=== PATIENT | male | born 1950 | race Caucasian/White ===

== ENCOUNTER 2017-11-02 12:23 | Emergency (ER) | payer MEDICARE, MEDICAID ==
[2017-11-02 13:10] LABS: #Lymphocytes 0.9 thou/uL (1.20-3.40); #Monocytes 0.5 thou/uL (0.11-0.59); #Neutrophils 3.5 thou/uL (1.40-6.50); %Basophils 0.6 % (0.0-1.0); %Eosinophils 0.4 % (0.0-10.0); %Lymphocytes 18.3 % (21.0-51.0); %Monocytes 9.9 % (0.0-10.0); %Neutrophils 70.9 % (42.0-75.0); Hemoglobin 13.5 g/dL (14.0-18.0); Mean Corpuscular HGB CONC 31.6 g/dL (32.0-36.0); Mean Corpuscular Hemoglobin 25.9 pg (27.0-31.0); Mean Corpuscular Volume 82.1 fl (80.0-94.0); Mean Platelet Volume 7.2 fL (7.4-10.4); Platelet Count 211 thou/uL (130-400); RBC Distribution Width 14.8 % (11.5-14.5); White Blood Cell (WBC) Count 4.9 thou/uL (4.8-10.8)
[2017-11-02 13:26] LABS: ALT (SGPT) 15 U/L (8-55); AST (SGOT) 18 U/L (5-34); Albumin 3.7 g/dL (3.4-4.8); Alkaline Phosphatase 130 U/L (40-150); Anion Gap 16 mmol/L (10-20); BUN (Urea Nitrogen) 18 mg/dL (8.4-25.7); Bilirubin, Total 0.5 mg/dL (0.2-1.2); Calc. Creatinine Clearance 0 mL/min (70-130); Calcium 9.4 mg/dL (7.8-10.44); Carbon Dioxide 23 mmol/L (23-31); Chloride 108 mmol/L (98-107); Estimated GFR-MDRD Greater than 90; Glucose 94 mg/dL (80-115); Potassium 3.9 mmol/L (3.5-5.1); Protein, Total 6.7 g/dL (5.8-8.1); Sodium 143 mmol/L (136-145)
[2017-11-02 13:31] LABS: CKMB 2.6 ng/mL (0-6.6); Troponin I Less than 0.010 ng/mL (< 0.028)
--- NOTE | 2017-11-02 14:06 | RAD ---
PORTABLE CHEST 1 VIEW: DATE: 11/02/17. TIME: 12:26 p.m. HISTORY: Altered mental status. FINDINGS: Comparison is made with the exam of 05/22/16. Tracheostomy tube remains in place. The heart size is normal. The aorta is tortuous. No focal area s of consolidation, pneumothoraces, or pleural effusions, or infarct. IMPRESSION: No radiographic evidence of acute cardiopulmonary process. POS: AGUST[facility]N
--- NOTE | 2017-11-02 14:21 | CT ---
CT BRAIN NONCONTRAST: DATE: 11/02/17. TIME: 1:24 p.m. HISTORY: A 67-year-old male with syncope. COMPARISON: 11/27/14. FINDINGS: Again noted are the old right temporal craniotomy changes. Previously, there was a moderate-sized re gion of right lateral frontal lobe encephalomalacia and gliosis. This is again noted, but the extent may have increased in size since the prior CT. Small adjacent cortical focus of encephalomalacia and gliosis posterior to that in the upper right cerebrum. Previously, there was a moderate-sized region of contralateral left lateral frontal encephalomalacia and gliosis, plus irregularly shaped encephalomalacia and gliosis involving left basal ganglia, left caudate nucleus, and left internal and external capsules, along with left thalamus. There is a new finding of a moderate-sized region of encephalomalacia and gliosis in the left parieta l lobe, contiguous with the left frontal lobe encephalomalacia and gliosis. There is ex vacuo dilati on of the left lateral ventricle. No obstructive hydrocephalus, mass effect, midline shift, acute intraaxial or extraaxial hemorrhage, or any other extraaxial fluid collection. No acute calvarial fracture. IMPRESSION: 1. 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 Some of them occurred after the previous CT of 11/27/14. 2. Old infarctions in the contralateral right middle cerebral artery territory. 3. 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 4. No acute intracranial findings. JOSIAS Lou POS: GILDARDO
== END 2017-11-02 15:54 | disposition short-term general hospital (02) ==
LOC: MADERS 12:23
DX: R55 Syncope and collapse (principal); K21.9 Gastro-esophageal reflux disease without esophagitis; Z86.73 Personal history of transient ischemic attack (TIA), and cerebral infarction without residual deficits; Z86.711 Personal history of pulmonary embolism; F32.9 Major depressive disorder, single episode, unspecified
CPT/HCPCS: 36415; 70450; 71045; 80053; 82553; 84443; 84484; 85025; 93005

== ENCOUNTER 2018-06-10 02:35 | Emergency (ER) | payer MEDICARE, MEDICAID ==
[2018-06-10 05:13] LABS: ALT (SGPT) 24 U/L (8-55); AST (SGOT) 47 U/L (5-34); Albumin 3.7 g/dL (3.4-4.8); Alkaline Phosphatase 111 U/L (40-150); Anion Gap 19 mmol/L (10-20); BUN (Urea Nitrogen) 35 mg/dL (8.4-25.7); Bilirubin, Total 0.6 mg/dL (0.2-1.2); Calc. Creatinine Clearance 0 mL/min (70-130); Calcium 9.2 mg/dL (7.8-10.44); Carbon Dioxide 23 mmol/L (23-31); Chloride 102 mmol/L (98-107); Estimated GFR-MDRD 70; Globulin 3.3 g/dL (2.4-3.5); Glucose 119 mg/dL (80-115); Potassium 4.5 mmol/L (3.5-5.1); Sodium 139 mmol/L (136-145)
[2018-06-10 05:15] LABS: Band 13 % (5-11); Hemoglobin 14.3 g/dL (14.0-18.0); Lymphocytes 3 % (21-51); MDiff Complete? YES; Mean Corpuscular HGB CONC 32.5 g/dL (32.0-36.0); Mean Corpuscular Volume 92.2 fL (78.0-98.0); Mean Platelet Volume 7.1 fL (7.4-10.4); Monocytes 3 % (0-10); Neutrophil 80 % (42-75); PLT Morphology Comment Appears Adequate; Platelet Count 226 thou/uL (130-400); RBC Distribution Width 13.3 % (11.5-14.5); RBC Morphology Normal; Reactive Lymphocytes 1 % (0-10); Red Blood Cell (RBC) Count 4.75 mill/uL (4.70-6.10); White Blood Cell (WBC) Count 41.4 thou/uL (4.8-10.8)
--- NOTE | 2018-06-10 09:34 | RAD ---
FRONTAL RADIOGRAPH CHEST: 06/10/2018 HISTORY: Shortness of breath/cough. COMPARISON: 03/05/2018 FINDINGS: Tracheostomy tube present. No pneumothorax, lobar consolidation, or alveolar edema. Mild diffuse in creased linear interstitial density. Mild hazy density in both lung bases suggest scar and/or volume loss. IMPRESSION: NO focal consolidation or alveolar edema. POS: [facility]
== END 2018-06-10 05:13 | disposition short-term general hospital (02) ==
LOC: MADERS 02:35
DX: J69.0 Pneumonitis due to inhalation of food and vomit (principal); Z86.73 Personal history of transient ischemic attack (TIA), and cerebral infarction without residual deficits; Z86.711 Personal history of pulmonary embolism; K21.9 Gastro-esophageal reflux disease without esophagitis; E78.5 Hyperlipidemia, unspecified; F32.9 Major depressive disorder, single episode, unspecified; Z79.899 Other long term (current) drug therapy
CPT/HCPCS: 36415; 71045; 80053; 83605; 85025; 87040; 87804; 94760; J7620

== ENCOUNTER 2018-12-22 00:25 | Emergency (ER) | payer MEDICARE, MEDICAID ==
[2018-12-22] MEDS ORDERED: Sterile Water 10 ML ONE (00:57)
== END 2018-12-22 01:33 | disposition home or self-care (01) ==
LOC: MADERS 00:25
DX: K94.23 Gastrostomy malfunction (principal); J43.9 Emphysema, unspecified; F32.9 Major depressive disorder, single episode, unspecified; E78.5 Hyperlipidemia, unspecified; Z86.711 Personal history of pulmonary embolism; Z86.73 Personal history of transient ischemic attack (TIA), and cerebral infarction without residual deficits; Z79.899 Other long term (current) drug therapy
CPT/HCPCS: 43762; A4216

== ENCOUNTER 2018-12-25 00:21 | Emergency (ER) | payer MEDICARE, OTHER ==
[2018-12-25 01:30] LABS: #Basophils 0.1 thou/uL (0.0-0.2); #Lymphocytes 0.5 thou/uL (1.20-3.40); #Monocytes 0.7 thou/uL (0.11-0.59); #Neutrophils 10.6 thou/uL (1.40-6.50); %Basophils 0.5 % (0.0-1.0); %Lymphocytes 4.3 % (21.0-51.0); %Monocytes 6.2 % (0.0-10.0); %Neutrophils 88.9 % (42.0-75.0); Hemoglobin 13.5 g/dL (14.0-18.0); Mean Corpuscular HGB CONC 32.1 g/dL (32.0-36.0); Mean Corpuscular Hemoglobin 27.7 pg (27.0-31.0); Mean Corpuscular Volume 86.2 fL (78.0-98.0); Mean Platelet Volume 6.5 fL (7.4-10.4); Platelet Count 326 thou/uL (130-400); RBC Distribution Width 14.2 % (11.5-14.5); Red Blood Cell (RBC) Count 4.86 mill/uL (4.70-6.10)
[2018-12-25] MEDS ORDERED: Sodium Chloride 0.9% 1,000 ML ONE (01:39)
[2018-12-25] MEDS ORDERED: Piperacillin/Tazobactam 4.5 GM VIAL ONE (01:39)
[2018-12-25] MEDS ORDERED: Sodium Chloride 0.9% 100 ML ONE (01:40)
[2018-12-25 01:44] LABS: ALT (SGPT) 17 U/L (8-55); AST (SGOT) 17 U/L (5-34); Albumin 3.9 g/dL (3.4-4.8); Alkaline Phosphatase 135 U/L (40-150); BUN (Urea Nitrogen) 43 mg/dL (8.4-25.7); Bilirubin, Total 0.5 mg/dL (0.2-1.2); Calc. Creatinine Clearance 0 mL/min (70-130); Calcium 9.6 mg/dL (7.8-10.44); Carbon Dioxide 21 mmol/L (23-31); Estimated GFR-MDRD 84; Globulin 4.4 g/dL (2.4-3.5); Glucose 123 mg/dL (80-115); Protein, Total 8.3 g/dL (5.8-8.1)
[2018-12-25 01:52] LABS: Chloride 102 mmol/L (98-107); Potassium 4.2 mmol/L (3.5-5.1); Sodium 140 mmol/L (136-145)
[2018-12-25 01:58] LABS: Anion Gap 21 mmol/L (10-20)
--- NOTE | 2018-12-25 08:06 | RAD ---
EXAM: Chest one view: HISTORY: Dyspnea COMPARISON: 07/26/2018 FINDINGS: Stable tracheostomy tube. Heart size: Within normal limits. Lungs: Patchy linear and interstitial parenchymal changes particularly in the perihilar regions, stab le. Interposed colon gas between the right hemidiaphragm and liver. No evidence for pneumonia, pleural effusion, acute edema, or pneumothorax, or other significant acute process. IMPRESSION: No significant acute intrathoracic disease. Overall stable exam.
== END 2018-12-25 02:22 | disposition short-term general hospital (02) ==
LOC: MADERS 00:21
DX: J69.0 Pneumonitis due to inhalation of food and vomit (principal); F32.9 Major depressive disorder, single episode, unspecified; I26.99 Other pulmonary embolism without acute cor pulmonale; Z79.899 Other long term (current) drug therapy
CPT/HCPCS: 71045; 80053; 83605; 83880; 84484; 85025; 87040; 93005; 94760; 96365; J2543; J3490; J7050

== ENCOUNTER 2020-04-20 03:42 | Emergency (ER) | payer MEDICARE, MEDICAID ==
[2020-04-20] MEDS ORDERED: Cefepime 2 GM VIAL ONE (05:07)
[2020-04-20] MEDS ORDERED: Sodium Chloride 0.9% 2,000 ML ONE (05:07)
[2020-04-20] MEDS ORDERED: Sodium Chloride 0.9% 100 ML ONE (05:08)
[2020-04-20 05:20] LABS: #Basophils 0.1 thou/uL (0.0-0.2); #Monocytes 1.5 thou/uL (0.11-0.59); %Eosinophils 0.1 % (0.0-10.0); %Lymphocytes 6.6 % (21.0-51.0); %Monocytes 9.9 % (0.0-10.0); %Neutrophils 82.4 % (42.0-75.0); Hemoglobin 15.2 g/dL (14.0-18.0); Mean Corpuscular HGB CONC 31.8 g/dL (32.0-36.0); Mean Corpuscular Volume 97.4 fL (78.0-98.0); Platelet Count 369 thou/uL (130-400); RBC Distribution Width 13.3 % (11.5-14.5); Red Blood Cell (RBC) Count 4.91 mill/uL (4.70-6.10); White Blood Cell (WBC) Count 14.6 thou/uL (4.8-10.8)
[2020-04-20 05:26] LABS: Bilirubin Negative (Negative); Blood, Urine Trace (Negative); Clarity Slightly Cloudy (Clear); Glucose, Urine (Dipstick) Negative (Negative); Ketone, Urine Negative (Negative); Leukocyte Large (Negative); Nitrite Positive (Negative); Protein, Urine (Dipstick) 30 mg/dL (Neg-Trace); Urobilinogen 0.2 mg/dL (Less than 2); pH, Urine 7.5 (5.0-9.0)
[2020-04-20 05:34] LABS: ALT (SGPT) 11 U/L (8-55); AST (SGOT) 17 U/L (5-34); Albumin 3.5 g/dL (3.4-4.8); Alkaline Phosphatase 113 U/L (40-110); Anion Gap 15 mmol/L (10-20); BUN (Urea Nitrogen) 27 mg/dL (8.4-25.7); Bilirubin, Total 0.5 mg/dL (0.2-1.2); Calc. Creatinine Clearance 0 mL/min (70-130); Calcium 8.8 mg/dL (7.8-10.44); Carbon Dioxide 28 mmol/L (23-31); Chloride 103 mmol/L (98-107); Estimated GFR-MDRD Greater than 90; Globulin 3.2 g/dL (2.4-3.5); Glucose 104 mg/dL (80-115); Potassium 4.2 mmol/L (3.5-5.1); Protein, Total 6.7 g/dL (5.8-8.1); RBC/HPF 0-3 HPF (0-3); Sodium 142 mmol/L (136-145); WBC/HPF Greater Than 50 HPF (0-3)
[2020-04-20 05:35] LABS: Bacteria/HPF 4+ HPF (None Seen); Mucous/LPF Rare LPF (<2+); Squamous Epithelial 0-3 HPF (0-3); Yeast-Budding Rare HPF (None Seen); Yeast-Hyphae 1+ HPF (None Seen)
[2020-04-20] MEDS ORDERED: Vancomycin 1.5 GRAM/300 ML BAG ONE (06:28)
--- NOTE | 2020-04-20 10:18 | RAD ---
PORTABLE CHEST: 04/20/20 PROVIDED CLINICAL HISTORY: Altered mental status. COMPARISON: 12/25/2018 FINDINGS: The cardiac and mediastinal silhouette is unchanged in appearance. Tracheostomy appliance is again se en in a similar position. Stable linear parenchymal opacities, compatible with scarring. No focal con solidation, pleural fluid or pneumothorax apparent. IMPRESSION: No evidence for an acute cardiopulmonary process. POS: [facility]
== END 2020-04-20 06:51 | disposition short-term general hospital (02) ==
LOC: MADERS 03:42
DX: A41.9 Sepsis, unspecified organism (principal); N39.0 Urinary tract infection, site not specified; R00.0 Tachycardia, unspecified; R26.9 Unspecified abnormalities of gait and mobility; G81.91 Hemiplegia, unspecified affecting right dominant side; R47.01 Aphasia; S51.811A Laceration without foreign body of right forearm, initial encounter; J43.9 Emphysema, unspecified; F32.9 Major depressive disorder, single episode, unspecified; I67.5 Moyamoya disease; K21.9 Gastro-esophageal reflux disease without esophagitis; E78.5 Hyperlipidemia, unspecified; E78.00 Pure hypercholesterolemia, unspecified; Z86.711 Personal history of pulmonary embolism; Z86.73 Personal history of transient ischemic attack (TIA), and cerebral infarction without residual deficits; X58.XXXA Exposure to other specified factors, initial encounter
CPT/HCPCS: 71045; 80053; 81003; 81015; 83605; 85025; 87040; 87077; 87086; 87186; 96361; 96365; 96366; 96367; J0692; J3370; J3490; J7050

== ENCOUNTER 2020-08-09 22:58 | Emergency (ER) | payer MEDICARE, MEDICAID ==
[~2020-08-09 22:58] MED LIST: Iopamidol 370 76% 100 ML VIAL ONE
[2020-08-10 00:02] LABS: #Basophils 0.2 thou/uL (0.0-0.2); #Lymphocytes 1.4 thou/uL (1.20-3.40); #Monocytes 0.9 thou/uL (0.11-0.59); #Neutrophils 16.1 thou/uL (1.40-6.50); %Basophils 0.8 % (0.0-1.0); %Eosinophils 0.1 % (0.0-10.0); %Lymphocytes 7.6 % (21.0-51.0); %Monocytes 4.7 % (0.0-10.0); %Neutrophils 86.8 % (42.0-75.0); Hemoglobin 12.7 g/dL (14.0-18.0); Mean Corpuscular HGB CONC 30.7 g/dL (32.0-36.0); Mean Corpuscular Hemoglobin 27.1 pg (27.0-31.0); Mean Corpuscular Volume 88.3 fL (78.0-98.0); Mean Platelet Volume 6.5 fL (7.4-10.4); Platelet Count 521 thou/uL (130-400); RBC Distribution Width 14.4 % (11.5-14.5); Red Blood Cell (RBC) Count 4.69 mill/uL (4.70-6.10); White Blood Cell (WBC) Count 18.6 thou/uL (4.8-10.8)
[2020-08-10 00:18] LABS: ALT (SGPT) 17 U/L (8-55); AST (SGOT) 18 U/L (5-34); Albumin 3.1 g/dL (3.4-4.8); Alkaline Phosphatase 121 U/L (40-110); Anion Gap 18 mmol/L (10-20); BUN (Urea Nitrogen) 47 mg/dL (8.4-25.7); Bilirubin, Total 0.2 mg/dL (0.2-1.2); Calc. Creatinine Clearance 0 mL/min (70-130); Carbon Dioxide 23 mmol/L (23-31); Chloride 118 mmol/L (98-107); Globulin 3.4 g/dL (2.4-3.5); Glucose 109 mg/dL (83-110); Potassium 4.9 mmol/L (3.5-5.1); Protein, Total 6.5 g/dL (5.8-8.1); Sodium 154 mmol/L (136-145)
[2020-08-10] MEDS ORDERED: Sodium Chloride 0.9% 250 ML 250 ML ONE (01:27)
[2020-08-10] MEDS ORDERED: metroNIDAZOLE 500 MG/100 ML BAG ONE ×2 (01:27→01:29)
[2020-08-10] MEDS ORDERED: Sodium Chloride 0.9% 1,000 ML ONE (01:27)
[2020-08-10] MEDS ORDERED: Cefepime 2 GM VIAL ONE (01:27)
[2020-08-10 01:54] LABS: Bilirubin Negative (Negative); Blood, Urine Trace (Negative); Clarity Cloudy (Clear); Glucose, Urine (Dipstick) Negative (Negative); Ketone, Urine Negative (Negative); Leukocyte Small (Negative); Nitrite Negative (Negative); Protein, Urine (Dipstick) 100 mg/dL (Neg-Trace); Urobilinogen 0.2 mg/dL (Less than 2)
[2020-08-10 01:59] LABS: pH, Urine Greater/Equal 9.0 (5.0-9.0)
[2020-08-10 02:05] LABS: RBC/HPF 0-3 HPF (0-3); Squamous Epithelial 0-3 HPF (0-3); WBC/HPF 0-3 HPF (0-3)
[2020-08-10 02:06] LABS: Bacteria/HPF Rare-Few HPF (None Seen); Mucous/LPF 1+ LPF (<2+); Triple Phosphate Crystal 2+ HPF (None Seen); Yeast-Budding 1+ HPF (None Seen); Yeast-Hyphae 1+ HPF (None Seen)
[2020-08-10] MEDS ORDERED: Sodium Chloride 0.9% 500 ML ONE (02:31)
[2020-08-10] MEDS ORDERED: Acetaminophen 500 MG TAB ONE (02:34)
[2020-08-10] MEDS ORDERED: Sodium Chloride Irrig Solution 250 ML ONE (05:07)
[2020-08-10 08:43] LABS: SARS-CoV-2 NAA Rapid Test Not Detected (NotDetected)
== END 2020-08-10 07:30 | disposition short-term general hospital (02) ==
LOC: MADERS 22:58
DX: A41.9 Sepsis, unspecified organism (principal); J69.0 Pneumonitis due to inhalation of food and vomit; S42.301A Unspecified fracture of shaft of humerus, right arm, initial encounter for closed fracture; Z20.822 Contact with and (suspected) exposure to COVID-19; E46 Unspecified protein-calorie malnutrition; L89.154 Pressure ulcer of sacral region, stage 4; K21.9 Gastro-esophageal reflux disease without esophagitis; E78.00 Pure hypercholesterolemia, unspecified; E78.5 Hyperlipidemia, unspecified; J44.9 Chronic obstructive pulmonary disease, unspecified; Z79.899 Other long term (current) drug therapy; Z93.1 Gastrostomy status; X58.XXXA Exposure to other specified factors, initial encounter
CPT/HCPCS: 0240U; 71045; 73060; 74177; 83605; 83880; 84484; 87040; 87077; 87086; 87186; 93005; 94760; 80053; 81003; 81015; 84443; 85025; 87070; 87205; 96365; 96367; 96368; 96375; J0692; J1956; J3370; J7030; J7050; Q9967

== ENCOUNTER 2020-10-24 07:28 | Emergency (ER) | payer MEDICARE, MEDICAID ==
[2020-10-24] MEDS ORDERED: Acetaminophen 650 MG Suppository ONE (07:55)
[2020-10-24] MEDS ORDERED: Sodium Chloride 0.9% 1,000 ML ONE (08:19)
[2020-10-24] MEDS ORDERED: Cefepime 2 GM VIAL ONE (08:19)
[2020-10-24 08:58] LABS: Hemoglobin 11.6 g/dL (14.0-18.0); Mean Corpuscular HGB CONC 29.9 g/dL (32.0-36.0); Mean Corpuscular Hemoglobin 25.5 pg (27.0-31.0); Mean Corpuscular Volume 85.4 fL (78.0-98.0); Mean Platelet Volume 6.8 fL (7.4-10.4); Platelet Count 602 thou/uL (130-400); RBC Distribution Width 17.2 % (11.5-14.5); Red Blood Cell (RBC) Count 4.56 mill/uL (4.70-6.10); White Blood Cell (WBC) Count 23.6 thou/uL (4.8-10.8)
[2020-10-24 09:05] LABS: ALT (SGPT) 23 U/L (8-55); AST (SGOT) 26 U/L (5-34); Albumin 3.2 g/dL (3.4-4.8); Alkaline Phosphatase 120 U/L (40-110); Anion Gap 17 mmol/L (10-20); BUN (Urea Nitrogen) 28 mg/dL (8.4-25.7); Bilirubin, Total 1.2 mg/dL (0.2-1.2); Calc. Creatinine Clearance 0 mL/min (70-130); Calcium 8.1 mg/dL (7.8-10.44); Carbon Dioxide 20 mmol/L (23-31); Chloride 102 mmol/L (98-107); Globulin 3.2 g/dL (2.4-3.5); Glucose 148 mg/dL (83-110); Protein, Total 6.4 g/dL (5.8-8.1); Sodium 134 mmol/L (136-145)
[2020-10-24 09:08] LABS: CK (CPK) 179 U/L (30-200); Lipase 27 U/L (8-78)
[2020-10-24 09:29] LABS: Anisocytosis SLIGHT = 6-15 cells (100X) (0-5/hpf); Band 5 % (5-11); Lymphocytes 7 % (21-51); MDiff Complete? YES; Manual Diff?? YES; Neutrophil 79 % (42-75); Platelet Morphology Comment Appears Increased; Reactive Lymphocytes 9 % (0-10)
== END 2020-10-24 10:23 | disposition short-term general hospital (02) ==
LOC: MADERS 07:28
DX: A41.9 Sepsis, unspecified organism (principal); R65.20 Severe sepsis without septic shock; I67.5 Moyamoya disease; E78.5 Hyperlipidemia, unspecified; E78.00 Pure hypercholesterolemia, unspecified; Z86.73 Personal history of transient ischemic attack (TIA), and cerebral infarction without residual deficits; J43.9 Emphysema, unspecified; K21.9 Gastro-esophageal reflux disease without esophagitis; Z86.711 Personal history of pulmonary embolism
CPT/HCPCS: 51702; 71045; 80053; 82550; 83605; 83690; 84484; 85025; 87040; 93005; 96365; J0692; J3370; J7050

== ENCOUNTER 2020-11-24 09:28 | Emergency (ER) | payer MEDICARE, MEDICAID ==
[2020-11-24 10:45] LABS: #Basophils 0.1 thou/uL (0.0-0.2); #Lymphocytes 1.7 thou/uL (1.20-3.40); #Monocytes 1.3 thou/uL (0.11-0.59); #Neutrophils 9.7 thou/uL (1.40-6.50); %Basophils 1.1 % (0.0-1.0); %Eosinophils 0.2 % (0.0-10.0); %Monocytes 9.8 % (0.0-10.0); %Neutrophils 75.8 % (42.0-75.0); Hemoglobin 9.6 g/dL (14.0-18.0); Mean Corpuscular HGB CONC 30.6 g/dL (32.0-36.0); Mean Corpuscular Hemoglobin 25.7 pg (27.0-31.0); Mean Corpuscular Volume 84.1 fL (78.0-98.0); Mean Platelet Volume 7.2 fL (7.4-10.4); Platelet Count 407 thou/uL (130-400); RBC Distribution Width 16.7 % (11.5-14.5); Red Blood Cell (RBC) Count 3.73 mill/uL (4.70-6.10); White Blood Cell (WBC) Count 12.8 thou/uL (4.8-10.8)
[2020-11-24] MEDS ORDERED: Sodium Chloride 0.9% 1,000 ML ONE (10:51)
[2020-11-24 11:04] LABS: ALT (SGPT) 10 U/L (8-55); AST (SGOT) 15 U/L (5-34); Albumin 2.8 g/dL (3.4-4.8); Alkaline Phosphatase 113 U/L (40-110); Anion Gap 15 mmol/L (10-20); BUN (Urea Nitrogen) 35 mg/dL (8.4-25.7); Bilirubin, Total 0.3 mg/dL (0.2-1.2); CK (CPK) 259 U/L (30-200); Calc. Creatinine Clearance 0 mL/min (70-130); Calcium 8.1 mg/dL (7.8-10.44); Carbon Dioxide 25 mmol/L (23-31); Chloride 100 mmol/L (98-107); Glucose 89 mg/dL (83-110); Potassium 4.2 mmol/L (3.5-5.1); Protein, Total 6.8 g/dL (5.8-8.1); Sodium 136 mmol/L (136-145)
[2020-11-24 11:32] LABS: Bilirubin Negative (Negative); Blood, Urine Moderate (Negative); Clarity Cloudy (Clear); Glucose, Urine (Dipstick) Negative (Negative); Ketone, Urine Negative (Negative); Leukocyte Moderate (Negative); Nitrite Positive (Negative); Protein, Urine (Dipstick) 30 mg/dL (Neg-Trace); Specific Gravity, Urine 1.015 (1.005-1.030); Urobilinogen 0.2 mg/dL (Less than 2); pH, Urine 8.5 (5.0-9.0)
[2020-11-24 11:35] LABS: Bacteria/HPF 2+ HPF (None Seen); RBC/HPF 21-50 HPF (0-3); Squamous Epithelial 0-3 HPF (0-3); WBC/HPF Greater Than 50 HPF (0-3)
[2020-11-24 11:36] LABS: Triple Phosphate Crystal Rare HPF (None Seen)
== END 2020-11-24 14:56 | disposition home or self-care (01) ==
LOC: MADERS 09:28
DX: N39.0 Urinary tract infection, site not specified (principal); R31.9 Hematuria, unspecified; R00.0 Tachycardia, unspecified; K21.9 Gastro-esophageal reflux disease without esophagitis; E78.5 Hyperlipidemia, unspecified; E78.00 Pure hypercholesterolemia, unspecified; J43.9 Emphysema, unspecified; Z86.73 Personal history of transient ischemic attack (TIA), and cerebral infarction without residual deficits; Z96.0 Presence of urogenital implants; Z86.69 Personal history of other diseases of the nervous system and sense organs; Z79.899 Other long term (current) drug therapy
CPT/HCPCS: 71045; 80053; 81003; 81015; 82550; 83605; 85025; 87040; 87086; 96361; 96365; 96366; J1956; J7050

== ENCOUNTER 2020-11-28 14:29 | Outpatient (CLI) | payer MEDICARE, MEDICAID ==
[2020-11-28 14:41] LABS: #Basophils 0.1 thou/uL (0.0-0.2); #Eosinphils 0.1 thou/uL (0.0-0.7); #Lymphocytes 1.6 thou/uL (1.20-3.40); #Monocytes 0.6 thou/uL (0.11-0.59); #Neutrophils 5.8 thou/uL (1.40-6.50); %Basophils 0.6 % (0.0-1.0); %Eosinophils 1.2 % (0.0-10.0); %Lymphocytes 19.6 % (21.0-51.0); %Monocytes 7.6 % (0.0-10.0); Hemoglobin 10.2 g/dL (14.0-18.0); Mean Corpuscular Volume 83.8 fL (78.0-98.0); Mean Platelet Volume 6.6 fL (7.4-10.4); Platelet Count 392 thou/uL (130-400); RBC Distribution Width 16.1 % (11.5-14.5); Red Blood Cell (RBC) Count 3.92 mill/uL (4.70-6.10); White Blood Cell (WBC) Count 8.2 thou/uL (4.8-10.8)
[2020-11-28 14:51] LABS: Anion Gap 15 mmol/L (10-20); BUN (Urea Nitrogen) 27 mg/dL (8.4-25.7); Calc. Creatinine Clearance 0 mL/min (70-130); Calcium 8.2 mg/dL (7.8-10.44); Carbon Dioxide 25 mmol/L (23-31); Chloride 102 mmol/L (98-107); Glucose 82 mg/dL (83-110); Potassium 4.5 mmol/L (3.5-5.1); Sodium 137 mmol/L (136-145)
== END 2020-11-28 14:30 | disposition home or self-care (01) ==
LOC: MADLAB 14:29
PROVIDERS: ATTEND Family Medicine
DX: Z43.1 Encounter for attention to gastrostomy (principal); Z43.0 Encounter for attention to tracheostomy; A41.9 Sepsis, unspecified organism; D64.9 Anemia, unspecified; N39.0 Urinary tract infection, site not specified; J44.9 Chronic obstructive pulmonary disease, unspecified
CPT/HCPCS: 80048; 85025

== ENCOUNTER 2020-12-07 23:16 | Emergency (ER) | payer MEDICARE, OTHER ==
[~2020-12-07 23:16] MED LIST changes: -Iopamidol 370 76% 100 ML VIAL ONE; +Sodium Chloride 0.9% 1,000 ML BAG ONE
[2020-12-08 00:44] LABS: Base Excess-Venous -2.6 mmol/L (-2.0 to 3.0); Bicarbonate (HCO3v) 21.4 mmol/L (22.0-28.0); Chloride 99 mmol/L (98-107); Hemoglobin - Calc 9.8 g/dL (14.0-18.0); Potassium 3.6 mmol/L (3.5-5.1); Sodium 134 mmol/L (138-145); T. Carbon Dioxide 22.4 mmol/L (22.0-28.0); vO2 Saturation-calc 97.2 % (60.0-85.0)
[2020-12-08 00:50] LABS: Band 7 % (5-11); Giant Platelets SLIGHT; Hemoglobin 9.5 g/dL (14.0-18.0); Large Platelets SLIGHT; Lymphocytes 9 % (21-51); MDiff Complete? YES; Mean Corpuscular HGB CONC 31.7 g/dL (32.0-36.0); Mean Corpuscular Hemoglobin 26.1 pg (27.0-31.0); Mean Corpuscular Volume 82.3 fL (78.0-98.0); Mean Platelet Volume 6.5 fL (7.4-10.4); Monocytes 4 % (0-10); Neutrophil 80 % (42-75); Platelet Count 293 thou/uL (130-400); Platelet Morphology Comment Appears Adequate; RBC Morphology Normal; Red Blood Cell (RBC) Count 3.66 mill/uL (4.70-6.10); White Blood Cell (WBC) Count 24.8 thou/uL (4.8-10.8)
[2020-12-08 00:55] LABS: ALT (SGPT) 11 U/L (8-55); AST (SGOT) 22 U/L (5-34); Albumin 2.6 g/dL (3.4-4.8); Alkaline Phosphatase 100 U/L (40-110); Anion Gap 17 mmol/L (10-20); BUN (Urea Nitrogen) 35 mg/dL (8.4-25.7); Bilirubin, Total 0.4 mg/dL (0.2-1.2); Calc. Creatinine Clearance 0 mL/min (70-130); Calcium 7.8 mg/dL (7.8-10.44); Carbon Dioxide 19 mmol/L (23-31); Chloride 101 mmol/L (98-107); Globulin 3.8 g/dL (2.4-3.5); Glucose 113 mg/dL (83-110); Lipase 17 U/L (8-78); Magnesium 1.9 mg/dL (1.6-2.6); Potassium 3.7 mmol/L (3.5-5.1); Protein, Total 6.4 g/dL (5.8-8.1); Sodium 133 mmol/L (136-145)
[2020-12-08] MEDS ORDERED: Piperacillin/Tazobactam 4.5 GM VIAL ONE (01:33)
[2020-12-08 01:41] LABS: Bilirubin Negative (Negative); Blood, Urine Large (Negative); Clarity Cloudy (Clear); Glucose, Urine (Dipstick) Negative (Negative); Ketone, Urine Negative (Negative); Leukocyte Moderate (Negative); Nitrite Negative (Negative); Protein, Urine (Dipstick) 30 mg/dL (Neg-Trace); Specific Gravity, Urine 1.015 (1.005-1.030); Urobilinogen 0.2 mg/dL (Less than 2)
[2020-12-08 01:47] LABS: Bacteria/HPF 1+ HPF (None Seen); RBC/HPF Greater than 50 HPF (0-3); Squamous Epithelial 0-3 HPF (0-3); Yeast-Budding 1+ HPF (None Seen); Yeast-Hyphae 3+ HPF (None Seen)
[2020-12-08] MEDS ORDERED: Ketorolac Tromethamine 30 MG/ML VIAL ONE (02:01)
== END 2020-12-08 02:14 | disposition short-term general hospital (02) ==
LOC: MADERS 23:16
DX: A41.9 Sepsis, unspecified organism (principal); R65.20 Severe sepsis without septic shock; R41.82 Altered mental status, unspecified; R06.2 Wheezing; I67.5 Moyamoya disease; K21.9 Gastro-esophageal reflux disease without esophagitis; E78.5 Hyperlipidemia, unspecified; E78.00 Pure hypercholesterolemia, unspecified; J43.9 Emphysema, unspecified; Z86.711 Personal history of pulmonary embolism
CPT/HCPCS: 51702; 71250; 74177; 80053; 81003; 81015; 82274; 82330; 82803; 83605; 83690; 83735; 83880; 84484; 85014; 85025; 87040; 96365; 96375; J1885; J2543; J3370; J7050

== ENCOUNTER 2021-04-08 12:15 | Emergency (ER) | payer MEDICARE, OTHER ==
[2021-04-08 14:12] LABS: #Basophils 0.1 thou/uL (0.0-0.2); #Eosinphils 0.1 thou/uL (0.0-0.7); #Lymphocytes 1.1 thou/uL (1.20-3.40); #Neutrophils 6.8 thou/uL (1.40-6.50); %Basophils 0.9 % (0.0-1.0); %Eosinophils 0.6 % (0.0-10.0); %Lymphocytes 12.3 % (21.0-51.0); %Monocytes 10.6 % (0.0-10.0); %Neutrophils 75.6 % (42.0-75.0); Hemoglobin 12.7 g/dL (14.0-18.0); Mean Corpuscular HGB CONC 31.3 g/dL (32.0-36.0); Mean Corpuscular Hemoglobin 26.4 pg (27.0-31.0); Mean Corpuscular Volume 84.4 fL (78.0-98.0); Mean Platelet Volume 6.5 fL (7.4-10.4); Platelet Count 353 thou/uL (130-400); RBC Distribution Width 16.8 % (11.5-14.5)
[2021-04-08 14:42] LABS: ALT (SGPT) 17 U/L (8-55); AST (SGOT) 16 U/L (5-34); Albumin 3.4 g/dL (3.4-4.8); Alkaline Phosphatase 189 U/L (40-110); Anion Gap 16 mmol/L (10-20); BUN (Urea Nitrogen) 39 mg/dL (8.4-25.7); Bilirubin, Total 0.5 mg/dL (0.2-1.2); CK (CPK) 70 U/L (30-200); Calc. Creatinine Clearance 0 mL/min (70-130); Calcium 9.3 mg/dL (7.8-10.44); Carbon Dioxide 35 mmol/L (23-31); Chloride 88 mmol/L (98-107); Globulin 3.9 g/dL (2.4-3.5); Glucose 109 mg/dL (83-110); Lipase 38 U/L (8-78); Protein, Total 7.3 g/dL (5.8-8.1); Sodium 136 mmol/L (136-145)
[2021-04-08 16:24] LABS: Magnesium 2.6 mg/dL (1.6-2.6)
[2021-04-08 16:29] LABS: Base Excess-Venous 15.5 mmol/L (-2.0 to 3.0); CO2 Tension (PvCO2) 45.8 mmHg (42.0-51.0); Chloride 88 mmol/L (98-107); Hemoglobin - Calc 14.7 g/dL (14.0-18.0); Potassium 2.9 mmol/L (3.5-5.1); Sodium 137 mmol/L (138-145); T. Carbon Dioxide 41.4 mmol/L (22.0-28.0); vO2 Saturation-calc 99.7 % (60.0-85.0)
[2021-04-08] MEDS ORDERED: Potassium Chloride 20 MEQ TAB ONE ×2 (16:43→21:36)
[2021-04-08 17:20] LABS: Lactic Acid 2.7 mmol/L (0.5-2.2)
[2021-04-08] MEDS ORDERED: Lactated Ringer's 2,000 ML ONE (18:23)
[2021-04-08 20:29] LABS: Anion Gap 14 mmol/L (10-20); BUN (Urea Nitrogen) 30 mg/dL (8.4-25.7); Calc. Creatinine Clearance 0 mL/min (70-130); Calcium 8.7 mg/dL (7.8-10.44); Carbon Dioxide 34 mmol/L (23-31); Chloride 94 mmol/L (98-107); Glucose 107 mg/dL (83-110); Potassium 3.2 mmol/L (3.5-5.1); Sodium 139 mmol/L (136-145)
[2021-04-08 21:35] LABS: Bilirubin Negative (Negative); Blood, Urine Small (Negative); Clarity Cloudy (Clear); Glucose, Urine (Dipstick) Negative (Negative); Ketone, Urine Negative (Negative); Leukocyte Large (Negative); Nitrite Positive (Negative); Protein, Urine (Dipstick) Trace mg/dL (Neg-Trace); Specific Gravity, Urine 1.015 (1.005-1.030); Urobilinogen 0.2 mg/dL (Less than 2); pH, Urine 8.5 (5.0-9.0)
[2021-04-08 21:43] LABS: Bacteria/HPF 3+ HPF (None Seen); RBC/HPF 0-3 HPF (0-3); Squamous Epithelial 0-3 HPF (0-3); Transitional Epithelial 0-3 HPF (None Seen); Triple Phosphate Crystal 3+ HPF (None Seen); WBC/HPF Greater Than 50 HPF (0-3)
[2021-04-08] MEDS ORDERED: Piperacillin/Tazobactam 3.375 GM VIAL ONE (21:45)
[2021-04-08] MEDS ORDERED: Sodium Chloride 0.9% 100 ML ONE (21:45)
[2021-04-08 22:10] LABS: SARS-CoV-2 NAA Rapid Test Not Detected (NotDetected)
== END 2021-04-08 20:08 | disposition short-term general hospital (02) ==
LOC: MADERS 12:15
DX: E87.3 Alkalosis (principal); G93.40 Encephalopathy, unspecified; N32.89 Other specified disorders of bladder; E87.8 Other disorders of electrolyte and fluid balance, not elsewhere classified; E87.6 Hypokalemia; R09.02 Hypoxemia; N19 Unspecified kidney failure; N39.0 Urinary tract infection, site not specified; K21.9 Gastro-esophageal reflux disease without esophagitis; E78.5 Hyperlipidemia, unspecified; E78.00 Pure hypercholesterolemia, unspecified; Z86.73 Personal history of transient ischemic attack (TIA), and cerebral infarction without residual deficits; J43.9 Emphysema, unspecified; Z20.822 Contact with and (suspected) exposure to COVID-19; Z79.899 Other long term (current) drug therapy
CPT/HCPCS: 36415; 70450; 71045; 74177; 80053; 81003; 81015; 82330; 82550; 82803; 83605; 83690; 83735; 83880; 84443; 84484; 85025; 87040; 87077; 87086; 87186; 93005; 96374; J2543; J3490; J7120; U0002

== ENCOUNTER 2021-07-22 14:15 | Outpatient (CLI) | payer MEDICARE, MEDICAID ==
[2021-07-22 14:28] LABS: #Eosinphils 0.1 thou/uL (0.0-0.7); #Lymphocytes 1.9 thou/uL (1.20-3.40); #Monocytes 0.7 thou/uL (0.11-0.59); #Neutrophils 3.2 thou/uL (1.40-6.50); %Basophils 0.7 % (0.0-1.0); %Eosinophils 2.3 % (0.0-10.0); %Lymphocytes 31.9 % (21.0-51.0); %Monocytes 11.7 % (0.0-10.0); %Neutrophils 53.4 % (42.0-75.0); Hemoglobin 11.8 g/dL (14.0-18.0); Mean Corpuscular HGB CONC 30.7 g/dL (32.0-36.0); Mean Corpuscular Hemoglobin 27.4 pg (27.0-31.0); Mean Corpuscular Volume 89.4 fL (78.0-98.0); Platelet Count 479 thou/uL (130-400); White Blood Cell (WBC) Count 6.1 thou/uL (4.8-10.8)
[2021-07-22 14:44] LABS: Anion Gap 18 mmol/L (10-20); BUN (Urea Nitrogen) 30 mg/dL (8.4-25.7); Calc. Creatinine Clearance 0 mL/min (70-130); Calcium 8.8 mg/dL (7.8-10.44); Carbon Dioxide 25 mmol/L (23-31); Cardiac Risk 2.8 (Less than 4.5); Chloride 102 mmol/L (98-107); Cholesterol 108 mg/dl (< 200 Desired); Glucose 95 mg/dL (83-110); HDL Cholesterol 38 mg/dL (>60 Neg Risk); LDL Cholesterol, Calculated 49 mg/dL; Potassium 4.4 mmol/L (3.5-5.1); Sodium 141 mmol/L (136-145); Triglycerides 105 mg/dL (Less than 150)
== END 2021-07-22 14:16 | disposition home or self-care (01) ==
LOC: MADLAB 14:15
PROVIDERS: ATTEND Family Medicine
DX: L89.154 Pressure ulcer of sacral region, stage 4 (principal); I69.320 Aphasia following cerebral infarction; N31.9 Neuromuscular dysfunction of bladder, unspecified; I10 Essential (primary) hypertension
CPT/HCPCS: 80048; 80061; 83880; 85025

== ENCOUNTER 2021-11-09 22:36 | Emergency (ER) | payer MEDICARE, MEDICAID ==
[~2021-11-09 22:36] MED LIST changes: +Iopamidol 370 76% 100 ML VIAL ONE; -Sodium Chloride 0.9% 1,000 ML BAG ONE
[2021-11-09] MEDS ORDERED: Sodium Chloride 0.9% 1,000 ML ONE (23:39)
[2021-11-09] MEDS ORDERED: Ketorolac Tromethamine 30 MG/ML VIAL ONE (23:39)
[2021-11-09 23:44] LABS: #Monocytes 0.9 thou/uL (0.11-0.59); #Neutrophils 6.7 thou/uL (1.40-6.50); %Basophils 0.5 % (0.0-1.0); %Eosinophils 0.4 % (0.0-10.0); %Monocytes 10.5 % (0.0-10.0); %Neutrophils 77.6 % (42.0-75.0); Mean Corpuscular HGB CONC 32.1 g/dL (32.0-36.0); Mean Corpuscular Hemoglobin 27.8 pg (27.0-31.0); Mean Corpuscular Volume 86.5 fL (78.0-98.0); Mean Platelet Volume 7.4 fL (7.4-10.4); Platelet Count 278 thou/uL (130-400); RBC Distribution Width 15.7 % (11.5-14.5); Red Blood Cell (RBC) Count 4.33 mill/uL (4.70-6.10); White Blood Cell (WBC) Count 8.7 thou/uL (4.8-10.8)
[2021-11-09 23:59] LABS: Bilirubin Negative (Negative); Blood, Urine Trace (Negative); Clarity Cloudy (Clear); Glucose, Urine (Dipstick) Negative (Negative); Ketone, Urine Negative (Negative); Leukocyte Moderate (Negative); Nitrite Positive (Negative); Protein, Urine (Dipstick) Trace mg/dL (Neg-Trace); Specific Gravity, Urine 1.015 (1.005-1.030); Urobilinogen 0.2 mg/dL (Less than 2); pH, Urine 7.5 (5.0-9.0)
[2021-11-09 23:59] LABS: Base Excess-Venous 2.7 mmol/L (-2.0 to 3.0); Bicarbonate (HCO3v) 25.9 mmol/L (22.0-28.0); CO2 Tension (PvCO2) 34.6 mmHg (42.0-51.0); Calcium, Ionized 1.04 mmol/L (1.15-1.33); Chloride 97 mmol/L (98-107); Hemoglobin - Calc 12.5 g/dL (14.0-18.0); Sodium 135 mmol/L (138-145); vO2 Saturation-calc 99.8 % (60.0-85.0)
[2021-11-10 00:02] LABS: ALT (SGPT) 16 U/L (8-55); AST (SGOT) 18 U/L (5-34); Albumin 3.4 g/dL (3.4-4.8); Alkaline Phosphatase 151 U/L (40-110); Anion Gap 18 mmol/L (10-20); BUN (Urea Nitrogen) 36 mg/dL (8.4-25.7); Bilirubin, Total 0.8 mg/dL (0.2-1.2); Calc. Creatinine Clearance 0 mL/min (70-130); Calcium 8.8 mg/dL (7.8-10.44); Carbon Dioxide 28 mmol/L (23-31); Chloride 96 mmol/L (98-107); Globulin 3.4 g/dL (2.4-3.5); Glucose 96 mg/dL (83-110); Lipase 25 U/L (8-78); Magnesium 2.1 mg/dL (1.6-2.6); Potassium 3.8 mmol/L (3.5-5.1); Protein, Total 6.8 g/dL (5.8-8.1); Sodium 138 mmol/L (136-145)
[2021-11-10 00:02] LABS: Bacteria/HPF 2+ HPF (None Seen); RBC/HPF 0-3 HPF (0-3)
[2021-11-10] MEDS ORDERED: cefTRIAXone\\ROCEPHIN 1 GM VIAL ONE (00:27)
[2021-11-10 00:48] LABS: Bilirubin Negative (Negative); Blood, Urine Small (Negative); Clarity Turbid (Clear); Glucose, Urine (Dipstick) Negative (Negative); Ketone, Urine Negative (Negative); Leukocyte Large (Negative); Nitrite Positive (Negative); Protein, Urine (Dipstick) 30 mg/dL (Neg-Trace); Urobilinogen 0.2 mg/dL (Less than 2); pH, Urine 7.5 (5.0-9.0)
[2021-11-10] MEDS ORDERED: Acetaminophen 650 MG Suppository ONE (01:07)
[2021-11-10] MEDS ORDERED: Acetaminophen 325 MG Suppository ONE (01:08)
== END 2021-11-10 03:09 | disposition short-term general hospital (02) ==
LOC: MADERS 22:36
DX: A41.9 Sepsis, unspecified organism (principal); N39.0 Urinary tract infection, site not specified; K21.9 Gastro-esophageal reflux disease without esophagitis; E78.5 Hyperlipidemia, unspecified; E78.00 Pure hypercholesterolemia, unspecified; Z86.73 Personal history of transient ischemic attack (TIA), and cerebral infarction without residual deficits; J43.9 Emphysema, unspecified; Z79.899 Other long term (current) drug therapy
CPT/HCPCS: 51702; 71045; 74177; 80053; 81003; 81015; 82330; 82803; 83605; 83690; 83735; 83880; 84484; 85025; 87040; 87086; 93005; 96360; 96365; 96375; J0696; J1885; J7050; Q9967

== ENCOUNTER 2022-04-14 18:18 | Emergency (ER) | payer MEDICARE, MEDICAID ==
[2022-04-14] MEDS ORDERED: Famotidine/PF 20 mg/2ml Vial ONE (19:01)
[2022-04-14] MEDS ORDERED: Sodium Chloride 0.9% 1,000 ML ONE (19:01)
[2022-04-14] MEDS ORDERED: methylPREDNISolone Sod Succ/PF 125 MG/2 ML VIAL ONE (19:01)
[2022-04-14 19:16] LABS: #Basophils 0.1 thou/uL (0.0-0.2); #Eosinphils 0.2 thou/uL (0.0-0.7); #Lymphocytes 1.3 thou/uL (1.20-3.40); #Monocytes 0.9 thou/uL (0.11-0.59); #Neutrophils 5.4 thou/uL (1.40-6.50); %Basophils 0.9 % (0.0-1.0); %Eosinophils 2.4 % (0.0-10.0); %Monocytes 11.2 % (0.0-10.0); %Neutrophils 68.5 % (42.0-75.0); Hemoglobin 15.8 g/dL (14.0-18.0); Mean Corpuscular HGB CONC 32.2 g/dL (32.0-36.0); Mean Corpuscular Hemoglobin 31.6 pg (27.0-31.0); Mean Platelet Volume 7.7 fL (7.4-10.4); Platelet Count 387 thou/uL (130-400); RBC Distribution Width 14.7 % (11.5-14.5); White Blood Cell (WBC) Count 7.9 thou/uL (4.8-10.8)
[2022-04-14 19:30] LABS: ALT (SGPT) 45 U/L (8-55); AST (SGOT) 77 U/L (5-34); Albumin 3.5 g/dL (3.4-4.8); Alkaline Phosphatase 168 U/L (40-110); Anion Gap 15 mmol/L (10-20); BUN (Urea Nitrogen) 28 mg/dL (8.4-25.7); Bilirubin, Total 0.5 mg/dL (0.2-1.2); Calc. Creatinine Clearance 0 mL/min (70-130); Calcium 8.7 mg/dL (7.8-10.44); Carbon Dioxide 25 mmol/L (23-31); Chloride 103 mmol/L (98-107); Estimated GFR 94; Globulin 3.6 g/dL (2.4-3.5); Glucose 94 mg/dL (83-110); Magnesium 2.5 mg/dL (1.6-2.6); Potassium 4.7 mmol/L (3.5-5.1); Protein, Total 7.1 g/dL (5.8-8.1); Sodium 138 mmol/L (136-145)
[2022-04-14] MEDS ORDERED: Sodium Chloride 0.9% 100 ML ONE (19:52)
[2022-04-14] MEDS ORDERED: cefTRIAXone\\ROCEPHIN 1 GM VIAL ONE (19:52)
[2022-04-14 19:57] LABS: Base Excess-Venous 1.4 mmol/L (-2.0 to 3.0); Bicarbonate (HCO3v) 28.1 mmol/L (22.0-28.0); CO2 Tension (PvCO2) 50.3 mmHg (42.0-51.0); vO2 Saturation-calc 99.5 % (60.0-85.0)
[2022-04-14 19:58] LABS: Calcium, Ionized 1.08 mmol/L (1.15-1.33); Chloride 105 mmol/L (98-107); Hemoglobin - Calc 18.1 g/dL (14.0-18.0); Potassium 4.7 mmol/L (3.5-5.1); Sodium 142 mmol/L (138-145); T. Carbon Dioxide 29.7 mmol/L (22.0-28.0)
[2022-04-14 20:33] LABS: Bilirubin Negative (Negative); Blood, Urine Negative (Negative); Glucose, Urine (Dipstick) Negative (Negative); Ketone, Urine Negative (Negative); Leukocyte Moderate (Negative); Nitrite Negative (Negative); Protein, Urine (Dipstick) Negative (Neg-Trace); Specific Gravity, Urine 1.015 (1.005-1.030); Urobilinogen 0.2 mg/dL (Less than 2); pH, Urine 6.5 (5.0-9.0)
[2022-04-14 20:36] LABS: Bacteria/HPF 3+ HPF (None Seen); Clarity Cloudy (Clear); RBC/HPF 0-3 HPF (0-3); WBC/HPF Greater than 50 HPF (0-3)
[2022-04-16 00:08] LABS: Campy jejuni + coli by PCR Negative (Negative); STEC Shiga Toxin 1+2 Negative (Negative); Salmonella spp. by PCR Negative (Negative); Shigella spp + EIEC by PCR Negative (Negative)
== END 2022-04-14 21:43 | disposition short-term general hospital (02) ==
LOC: MADERS 18:18
DX: A41.9 Sepsis, unspecified organism (principal); K21.9 Gastro-esophageal reflux disease without esophagitis; E78.00 Pure hypercholesterolemia, unspecified; Z79.899 Other long term (current) drug therapy
CPT/HCPCS: 36415; 51702; 71045; 80053; 81003; 81015; 82330; 82803; 83605; 83735; 83880; 84484; 85025; 87040; 87077; 87086; 87186; 87505; 93005; 96365; 96375; J0696; J2930; J3490; J7050; S0028

== ENCOUNTER 2022-04-18 20:43 | Emergency (ER) | payer MEDICARE, MEDICAID ==
[~2022-04-18 20:43] MED LIST changes: -Iopamidol 370 76% 100 ML VIAL ONE; +Iopamidol 370 76% 125 ML VIAL FS ONE; +Norepinephrine 4 MG/4 ML VIAL ONE; +Sodium Chloride 0.9% 100 ML BAG ONE
[2022-04-18 22:38] LABS: Bilirubin Negative (Negative); Blood, Urine Negative (Negative); Clarity Clear (Clear); Glucose, Urine (Dipstick) Negative (Negative); Ketone, Urine Negative (Negative); Leukocyte Small (Negative); Nitrite Negative (Negative); Protein, Urine (Dipstick) 30 mg/dL (Neg-Trace); Urobilinogen 0.2 mg/dL (Less than 2); pH, Urine 6.5 (5.0-9.0)
[2022-04-18 22:50] LABS: Bacteria/HPF 2+ HPF (None Seen); Squamous Epithelial None Seen HPF (0-3); Transitional Epithelial 0-3 HPF (None Seen); Yeast-Budding 1+ HPF (None Seen); Yeast-Hyphae 1+ HPF (None Seen)
[2022-04-18] MEDS ORDERED: Sodium Chloride 0.9% 2,000 ML ONE (23:11)
[2022-04-18 23:15] LABS: #Basophils 0.1 thou/uL (0.0-0.2); #Lymphocytes 0.4 thou/uL (1.20-3.40); #Monocytes 0.6 thou/uL (0.11-0.59); #Neutrophils 6.4 thou/uL (1.40-6.50); %Basophils 1.2 % (0.0-1.0); %Eosinophils 0.3 % (0.0-10.0); %Lymphocytes 4.9 % (21.0-51.0); %Monocytes 7.5 % (0.0-10.0); Hemoglobin 12.3 g/dL (14.0-18.0); Mean Corpuscular HGB CONC 33.4 g/dL (32.0-36.0); Mean Corpuscular Hemoglobin 32.6 pg (27.0-31.0); Mean Corpuscular Volume 97.6 fl (78.0-98.0); Mean Platelet Volume 7.1 fL (7.4-10.4); Platelet Count 277 thou/uL (130-400); RBC Distribution Width 14.5 % (11.5-14.5); Red Blood Cell (RBC) Count 3.76 mill/uL (4.70-6.10); White Blood Cell (WBC) Count 7.4 thou/uL (4.8-10.8)
[2022-04-18 23:25] LABS: SARS-CoV-2 NAA Rapid Test Not Detected (NotDetected)
[2022-04-18] MEDS ORDERED: Vancomycin 1 GM VIAL ONE (23:29)
[2022-04-18] MEDS ORDERED: Piperacillin/Tazobactam 3.375 GM VIAL ONE (23:29)
[2022-04-18] MEDS ORDERED: Sodium Chloride 0.9% 100 ML ONE (23:31)
[2022-04-18] MEDS ORDERED: Sodium Chloride 0.9% 250 ML 250 ML ONE (23:32)
[2022-04-18 23:42] LABS: ALT (SGPT) 23 U/L (8-55); AST (SGOT) 20 U/L (5-34); Albumin 3.2 g/dL (3.4-4.8); Alkaline Phosphatase 114 U/L (40-110); Anion Gap 11 mmol/L (10-20); BUN (Urea Nitrogen) 24 mg/dL (8.4-25.7); Bilirubin, Total 0.4 mg/dL (0.2-1.2); Calc. Creatinine Clearance 0 mL/min (70-130); Calcium 8.1 mg/dL (7.8-10.44); Carbon Dioxide 23 mmol/L (23-31); Chloride 105 mmol/L (98-107); Estimated GFR 96; Globulin 3.2 g/dL (2.4-3.5); Glucose 104 mg/dL (83-110); Lipase 22 U/L (8-78); Magnesium 2.1 mg/dL (1.6-2.6); Potassium 4.3 mmol/L (3.5-5.1); Protein, Total 6.4 g/dL (5.8-8.1); Sodium 135 mmol/L (136-145)
[2022-04-18] MEDS ORDERED: Acetaminophen 650 MG Suppository ONE (23:45)
[2022-04-18] MEDS ORDERED: Acetaminophen 325 MG Suppository ONE (23:45)
[2022-04-19] MEDS ORDERED: Ibuprofen 100 MG/5 ML UDCUP ONE (00:45)
[2022-04-19] MEDS ORDERED: Ondansetron PF 4 MG/2 ML Vial ONE (01:53)
[2022-04-19] MEDS ORDERED: Norepinephrine 4 MG/4 ML VIAL ONE (02:07)
[2022-04-19 02:42] LABS: pH (Arterial) 7.406 (7.35-7.45)
[2022-04-19 02:43] LABS: Base Excess (BEa) POC ABG -2.9 mmol/L (-2.0 to +3.0); Calcium, Ionized 1.01 mmol/L (1.15-1.33); Chloride POC ABG 106 mmol/L (98-107); Hematocrit POC ABG 39 % (38-51); Hemoglobin POC ABG 13.4 g/dL (12.0-17.0); O2 Saturation (calc) POC ABG 93.2 % (94.0-98.0); Potassium POC ABG 3.7 mmol/L (3.5-4.5); Sodium POC ABG 139 mmol/L (138-146)
== END 2022-04-19 03:31 | disposition short-term general hospital (02) ==
LOC: MADERS 20:49
DX: A41.9 Sepsis, unspecified organism (principal); L03.114 Cellulitis of left upper limb; J18.9 Pneumonia, unspecified organism; N39.0 Urinary tract infection, site not specified; Z20.822 Contact with and (suspected) exposure to COVID-19; Z79.899 Other long term (current) drug therapy
CPT/HCPCS: 36556; 71045; 71275; 80053; 81003; 81015; 82330; 82435; 82803; 83605; 83690; 83735; 83880; 84132; 84295; 84484; 85014; 85025; 87040; 87804; 87807; 93005; 96361; 96365; 96367; 96375; J2405; J2543; J3370; J3490; J7050; J7070; Q9967; U0002

== ENCOUNTER 2022-07-10 08:52 | Emergency (ER) | payer MEDICARE, MEDICAID ==
[2022-07-10 09:47] LABS: #Basophils 0.2 thou/uL (0.0-0.2); #Eosinphils 0.2 thou/uL (0.0-0.7); #Monocytes 1.1 thou/uL (0.11-0.59); #Neutrophils 8.3 thou/uL (1.40-6.50); %Basophils 1.4 % (0.0-1.0); %Eosinophils 2.1 % (0.0-10.0); %Neutrophils 77.6 % (42.0-75.0); Hemoglobin 11.8 g/dL (14.0-18.0); Mean Corpuscular HGB CONC 33.3 g/dL (32.0-36.0); Mean Corpuscular Hemoglobin 31.3 pg (27.0-31.0); Mean Corpuscular Volume 94.1 fl (78.0-98.0); Mean Platelet Volume 7.2 fL (7.4-10.4); Platelet Count 361 10x3/uL (130-400); RBC Distribution Width 13.2 % (11.5-14.5); Red Blood Cell (RBC) Count 3.76 mill/uL (4.70-6.10); White Blood Cell (WBC) Count 10.8 10x3/uL (4.8-10.8)
[2022-07-10 09:54] LABS: Bilirubin Negative (Negative); Blood, Urine Negative (Negative); Clarity Cloudy (Clear); Glucose, Urine (Dipstick) Negative (Negative); Ketone, Urine Negative (Negative); Leukocyte Large (Negative); Nitrite Negative (Negative); Protein, Urine (Dipstick) 30 mg/dL (Neg-Trace); Urobilinogen 0.2 mg/dL (Less than 2)
[2022-07-10 09:55] LABS: pH, Urine Greater/Equal 9.0 (5.0-9.0)
[2022-07-10 10:01] LABS: RBC/HPF 0-3 HPF (0-3)
[2022-07-10 10:03] LABS: Bacteria/HPF 4+ HPF (None Seen); Triple Phosphate Crystal 1+ HPF (None Seen)
[2022-07-10 10:03] LABS: ALT (SGPT) 23 U/L (8-55); AST (SGOT) 16 U/L (5-34); Albumin 3.5 g/dL (3.4-4.8); Alkaline Phosphatase 153 U/L (40-110); Anion Gap 16 mmol/L (10-20); BUN (Urea Nitrogen) 26 mg/dL (8.4-25.7); Bilirubin, Total 0.5 mg/dL (0.2-1.2); CRP (Inflammatory) 8.83 mg/dL (= or < 0.5); Calc. Creatinine Clearance 0 mL/min (70-130); Calcium 8.5 mg/dL (7.8-10.44); Carbon Dioxide 23 mmol/L (23-31); Chloride 102 mmol/L (98-107); Estimated GFR 97; Globulin 3.1 g/dL (2.4-3.5); Glucose 98 mg/dL (83-110); Magnesium 2.1 mg/dL (1.6-2.6); Potassium 4.7 mmol/L (3.5-5.1); Protein, Total 6.6 g/dL (5.8-8.1); Sodium 136 mmol/L (136-145)
[2022-07-10] MEDS ORDERED: Sodium Chloride 0.9% 100 ML ONE (10:36)
[2022-07-10] MEDS ORDERED: Ipratropium/Albuterol 3 ML NEB ONE (10:36)
[2022-07-10] MEDS ORDERED: Cefepime 2 GM VIAL ONE (10:36)
== END 2022-07-10 14:47 | disposition home or self-care (01) ==
LOC: MADERS 08:52
DX: N39.0 Urinary tract infection, site not specified (principal); J98.01 Acute bronchospasm; K21.9 Gastro-esophageal reflux disease without esophagitis; E78.00 Pure hypercholesterolemia, unspecified; Z86.711 Personal history of pulmonary embolism; J44.9 Chronic obstructive pulmonary disease, unspecified; Z79.899 Other long term (current) drug therapy
CPT/HCPCS: 36415; 71045; 80053; 81003; 81015; 83605; 83735; 83880; 84484; 85025; 86140; 87040; 87086; 87149; 96374; J0692; J3490; J7620

== ENCOUNTER 2024-03-14 09:38 | Emergency (ER) | payer MEDICARE, MEDICAID ==
[2024-03-14] MEDS ORDERED: Cefepime 2 GM VIAL ONE (11:06)
[2024-03-14] MEDS ORDERED: Vancomycin 1 GM VIAL ONE (11:06)
[2024-03-14] MEDS ORDERED: Sodium Chloride 0.9% 250 ML 250 ML ONE (11:06)
[2024-03-14] MEDS ORDERED: Sodium Chloride 0.9% 100 ML ONE (11:06)
[2024-03-14] MEDS ORDERED: Sodium Chloride 0.9% 500 ML ONE (11:06)
[2024-03-14 11:43] LABS: Anisocytosis SLIGHT = 6-15 cells (100X) (0-5/hpf); Band 36 % (5-11); Eosinophils 1 % (0-10); Hematocrit 34.1 % (42.0-52.0); Hemoglobin 11.4 g/dL (14.0-18.0); Hypochromia SLIGHT = 6-15 cells (100X) (0-5/hpf); Lymphocytes 5 % (21-51); MDiff Complete? YES; Macrocytosis SLIGHT = 6-15 cells (100X) (0-5/hpf); Mean Corpuscular HGB CONC 33.2 g/dL (32.0-36.0); Mean Corpuscular Hemoglobin 33.2 pg (27.0-31.0); Mean Corpuscular Volume 99.9 fl (78.0-98.0); Mean Platelet Volume 7.9 fL (7.4-10.4); Monocytes 7 % (0-10); Neutrophil 50 % (42-75); Platelet Adequacy Comment Appears Adequate; Platelet Count 273 10x3/uL (130-400); RBC Distribution Width 14.1 % (11.5-14.5); Red Blood Cell (RBC) Count 3.42 mill/uL (4.70-6.10); White Blood Cell (WBC) Count 12.2 10x3/uL (4.8-10.8)
[2024-03-14 11:50] LABS: ALT (SGPT) 16 U/L (8-55); AST (SGOT) 14 U/L (5-34); Albumin 2.7 g/dL (3.4-4.8); Alkaline Phosphatase 116 U/L (40-110); Anion Gap 14 mmol/L (10-20); BUN (Urea Nitrogen) 20 mg/dL (8.4-25.7); Calc. Creatinine Clearance 0 mL/min (70-130); Calcium 8.2 mg/dL (7.8-10.44); Carbon Dioxide 22 mmol/L (23-31); Chloride 101 mmol/L (98-107); Estimated GFR 96; Globulin 3.4 g/dL (2.4-3.5); Glucose 93 mg/dL (83-110); Potassium 3.8 mmol/L (3.5-5.1); Protein, Total 6.1 g/dL (5.8-8.1); Sodium 133 mmol/L (136-145)
== END 2024-03-14 14:52 | disposition short-term general hospital (02) ==
LOC: MADERS 09:38
DX: A41.9 Sepsis, unspecified organism (principal); L03.116 Cellulitis of left lower limb
CPT/HCPCS: 36415; 71045; 80053; 83605; 85025; 87040; 93005; 96361; 96365; 96375; J0692; J3370; J7030; J7050

== ENCOUNTER 2024-07-17 22:56 | Emergency (ER) | payer MEDICARE, MEDICAID ==
[2024-07-17 23:55] LABS: Band 13 % (5-11); Hematocrit 30.1 % (42.0-52.0); Hemoglobin 9.8 g/dL (14.0-18.0); Lymphocytes 11 % (21-51); MDiff Complete? YES; Mean Corpuscular HGB CONC 32.6 g/dL (32.0-36.0); Mean Corpuscular Hemoglobin 29.7 pg (27.0-31.0); Mean Platelet Volume 7.5 fL (7.4-10.4); Monocytes 9 % (0-10); Neutrophil 67 % (42-75); Platelet Count 320 10x3/uL (130-400); RBC Distribution Width 13.7 % (11.5-14.5)
[2024-07-18 00:07] LABS: ALT (SGPT) 15 U/L (Less than 45); AST (SGOT) 18 U/L (11-34); Albumin 2.4 g/dL (3.1-4.5); Alkaline Phosphatase 103 U/L (40-110); Anion Gap 18 mmol/L (10-20); BUN (Urea Nitrogen) 19 mg/dL (8.4-25.7); Bilirubin, Total 0.6 mg/dL (0.3-1.2); CK (CPK) 78 U/L (30-200); Calc. Creatinine Clearance 0 mL/min (70-130); Calcium 8.2 mg/dL (7.8-10.44); Carbon Dioxide 18 mmol/L (23-31); Chloride 95 mmol/L (98-107); Estimated GFR 101; Globulin 4.1 g/dL (2.4-3.5); Glucose 107 mg/dL (83-110); Lipase 31 U/L (8-78); Potassium 3.9 mmol/L (3.5-5.1); Protein, Total 6.5 g/dL (5.8-8.1); Sodium 127 mmol/L (136-145); Troponin I Less than 0.010 ng/mL (< 0.028)
[2024-07-18] MEDS ORDERED: Cefepime 1 GM VIAL ONE ×2 (00:20→12:24)
[2024-07-18] MEDS ORDERED: Sodium Chloride 0.9% 100 ML ONE ×2 (00:20→12:24)
[2024-07-18] MEDS ORDERED: Vancomycin 1 GM VIAL ONE ×2 (00:20→12:24)
[2024-07-18] MEDS ORDERED: Sodium Chloride 0.9% 250 ML 250 ML ONE ×2 (00:20→12:24)
[2024-07-18] MEDS ORDERED: Sodium Chloride 0.9% 1,000 ML ONE ×2 (00:22→11:35)
[2024-07-18 06:57] LABS: Bilirubin Negative (Negative); Blood, Urine Negative (Negative); Clarity Slightly Cloudy (Clear); Glucose, Urine (Dipstick) Negative (Negative); Ketone, Urine 15 mg/dL (Negative); Leukocyte Moderate (Negative); Nitrite Negative (Negative); Protein, Urine (Dipstick) 100 mg/dL (Neg-Trace); Urobilinogen 0.2 mg/dL (Less than 2)
[2024-07-18 07:06] LABS: CAUTI Indications for Culture Alt mental st,lethar; RBC/HPF 0-3 HPF (0-3); WBC/HPF Greater than 50 HPF (0-3)
[2024-07-18 07:07] LABS: Bacteria/HPF 2+ HPF (None Seen); Squamous Epithelial 0-3 HPF (0-3)
[2024-07-18 07:10] LABS: Urine Culture Reflex Yes Yes
== END 2024-07-18 18:07 | disposition short-term general hospital (02) ==
LOC: MADERS 22:56
DX: A41.9 Sepsis, unspecified organism (principal); J18.9 Pneumonia, unspecified organism; L03.311 Cellulitis of abdominal wall; K56.41 Fecal impaction; E87.1 Hypo-osmolality and hyponatremia; K52.89 Other specified noninfective gastroenteritis and colitis; E78.00 Pure hypercholesterolemia, unspecified; J44.9 Chronic obstructive pulmonary disease, unspecified; Z79.899 Other long term (current) drug therapy
CPT/HCPCS: 71250; 74176; 80053; 81001; 82550; 83605; 83690; 83880; 84484; 85025; 87040; 87086; 87149; 87428; 96361; 96365; 96366; 96367; J0692; J3370; J7030; J7050

== ENCOUNTER 2025-01-21 17:17 | Outpatient (CLI) | payer MEDICARE, MEDICAID ==
[2025-01-21 18:06] LABS: Hemoglobin 7.7 g/dL (14.0-18.0)
== END 2025-01-21 17:18 | disposition home or self-care (01) ==
LOC: MADLAB 17:17
PROVIDERS: ATTEND Registered Nurse
DX: D64.9 Anemia, unspecified (principal)
CPT/HCPCS: 85018